=== PATIENT | male | born 1950 ===

== ENCOUNTER 2018-07-17 15:20 | Emergency (ER) | payer MEDICARE, MEDICAID ==
[2018-07-17 15:41] VITALS: BMI 25.3
[2018-07-17] MEDS ORDERED: Naproxen 550 mg Tab PO STA (16:17)
[2018-07-17] MEDS ORDERED: Naproxen 550 mg Tab PO ONE (16:24)
--- NOTE | 2018-07-17 17:04 | C.PDOC ---
History Of Present Illness 68 year old male presents to the emergency department with complaints of body aches, sore throat, runny nose, headache, fever, chills, and productive cough since Wednesday07-13-18. Patient states that he is taking Advil with no relief. He denies chest pain, shortness of breath, diarrhea, and dysuria. Time Seen by Provider: 07/17/18 15:57 Chief Complaint (Nursing): Flu-like Symptoms History Per: Patient History/Exam Limitations: no limitations Onset/Duration Of Symptoms: Days (4) Current Symptoms Are (Timing): Still Present Past Medical History Reviewed: Historical Data, Nursing Documentation, Vital Signs Vital Signs: Last Vital Signs Temp 98.9 F 07/17/18 15:35 Pulse 103 H 07/17/18 15:55 Resp 18 07/17/18 15:35 BP 154/96 H 07/17/18 15:55 Pulse Ox 98 07/17/18 15:35 - Medical History PMH: Back Problems, Fractures (right leg), HTN, Kidney Stones Surgical History: No Surg Hx - [facility] Procedures DILATION OF BILATERAL URETERS WITH INTRALUMINAL DEVICE, ENDO (03/05/16) EXTIRPATION OF MATTER FROM RIGHT URETER, ENDO (03/05/16) TETANUS TOXOID ADMINIST (02/22/13) Family History: States: No Known Family Hx - Social History Hx Tobacco Use: Yes Hx Alcohol Use: No Hx Substance Use: No - Immunization History Hx Tetanus Toxoid Vaccination: No Hx Influenza Vaccination: No Hx Pneumococcal Vaccination: No Review Of Systems Except As Marked, All Systems Reviewed And Found Negative. Constitutional: Positive for: Fever, Chills, Weakness, Malaise ENT: Positive for: Nose Discharge, Throat Pain Cardiovascular: Negative for: Chest Pain Respiratory: Positive for: Cough (productive). Negative for: Shortness of Breath Gastrointestinal: Negative for: Diarrhea Genitourinary: Negative for: Dysuria Physical Exam - Physical Exam Appears: Non-toxic, In Acute Distress (mildly uncomfortable), Other (coughing occasionally) Skin: Warm, Dry Head: Atraumatic, Tenderness Eye(s): bilateral: Normal Inspection, PERRL, EOMI Nose: Normal Oral Mucosa: Moist Throat: Erythema, No Exudate Chest: Symmetrical, No Tenderness Cardiovascular: Rhythm Regular (tachycardic) Respiratory: Normal Breath Sounds, No Rales, No Rhonchi, No Wheezing Gastrointestinal/Abdominal: Soft, No Tenderness, No Guarding, No Rebound Extremity: Normal ROM Neurological/Psych: Oriented x3, Normal Speech, Normal Cognition ED Course And Treatment O2 Sat by Pulse Oximetry: 98 (RA) Pulse Ox Interpretation: Normal - Radiology CXR: Interpreted by Me, Viewed By Me CXR Interpretation: Yes: No Acute Disease. No: Infiltrates Progress Note: Plan: Naprosyn. Flu Swab. CXR. PO Fluids. Flu swab was negative. Patient reports feeling better and was discharged home. Disposition Counseled Patient/Family Regarding: Studies Performed, Diagnosis, Need For Followup, Rx Given - Disposition Referrals: Steven Barry MD [Staff Provider] - Disposition: HOME/ ROUTINE Disposition Time: 17:05 Condition: STABLE Additional Instructions: FOLLOW UP WITH YOUR DOCTOR IN 1-2 DAYS DRINK PLENTY OF FLUIDS USE MEDICATIONS NEEDED RETURN TO ER IF YOUR SYMPTOMS WORSEN Prescriptions: Benzonatate [Tessalon Perles] 100 mg PO BID PRN #15 sgl PRN Reason: Cough Naproxen 375 mg PO BID PRN #20 tablet PRN Reason: pain Phenol/Glycerin [Chloraseptic Max [place]] 1 spray MM Q6 PRN #1 spray PRN Reason: THROAT PAIN Instructions: Viral Syndrome (DC) Forms: [employer] (Luxembourgish) Print Language: SOUTH SUDANESE - Clinical Impression Clinical Impression: Viral syndrome - Scribe Statement The provider has reviewed the documentation as recorded by the Scribe (Demond Patricio) Provider Attestation: All medical record entries made by the Scribe were at my direction and personally dictated by me. I have reviewed the chart and agree that the record accurately reflects my personal performance of the history, physical exam, medical decision making, and the department course for this patient. I have also personally directed, reviewed, and agree with the discharge instructions and disposition.
[2018-07-17 17:17] VITALS: BP 136/84; PULSE 92; RESP 19; TEMP 98.4
--- NOTE | 2018-07-17 17:31 | RAD ---
Chest x-ray two views HISTORY: Cough and fever. COMPARISON: None available. Findings: Hyperinflation suggestive for COPD and or emphysematous changes. Biapical pleural thickening with upper lobe granulomatous changes. Small nodular density projecting over the left upper lung field. Left basilar atelectasis. Atherosclerotic calcification at the aortic knob. Heart size within normal limits. Degenerative changes in the spine and shoulders. Impression: Hyperinflation suggestive for COPD and or emphysematous changes. Biapical pleural thickening with upper lobe granulomatous changes. Small nodular density projecting over the left upper lung field. Left basilar atelectasis. Atherosclerotic calcification at the aortic knob.
[2018-07-17 18:35] VITALS: O2SAT 98
== END 2018-07-17 17:16 | disposition home or self-care (01) ==
LOC: C.ER 15:20
DX: B34.9 Viral infection, unspecified (principal)

== ENCOUNTER 2018-11-21 11:12 | Outpatient (CLI) | payer MEDICARE, MEDICAID | END 2018-11-21 11:13 | disposition home or self-care (01) | LOC: C.LAB 11:12 ==